=== PATIENT | female | born 1980 | race Asian ===

== ENCOUNTER → 2021-08-02 | Outpatient (CLI) | payer OTHER ==
[2021-08-03 03:06] LABS: RUBEOLA (MEASLES) IGG 21.2 AU/mL (Immune >16.4)
== END | disposition home or self-care (01) ==
LOC: LABMN 14:39
PROVIDERS: ATTEND Internal Medicine
DX: Z02.1 Encounter for pre-employment examination (principal)
CPT/HCPCS: 86706; 86735; 86762; 86765; 86787